=== PATIENT | female | born 2005 | race Caucasian/White ===

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

== ENCOUNTER 2024-08-22 13:49 | Outpatient (CLI) | payer OTHER, SELFPAY ==
--- NOTE | ~2024-08-22 | XR_ITS ---
XR lumbar spine 2-3V DATE: 08/22/2024 13:59 INDICATION: Low back pain for one month. No known injury. TECHNIQUE: AP, lateral, coned lateral lumbosacral views COMPARISON: None FINDINGS: Normal alignment of the lumbar spine. No fracture or bone destruction or spondylolisthesis. Included lower thoracic and lumbar pedicles are intact. Lumbosacral spaces are well preserved. The sacroiliac joints appear normal. IMPRESSION: Negative Reviewed, dictated and finalized at location A. IMPRESSION: Negative
== END 2024-08-22 13:50 | disposition home or self-care (01) ==
PROVIDERS: PCP Nurse Practitioner Family; Visit Provider Nurse Practitioner Family
DX: M54.50 Low back pain, unspecified (principal); G89.29 Other chronic pain
CPT/HCPCS: 72100

== ENCOUNTER 2025-01-13 15:33 | Outpatient (CLI) | payer OTHER, SELFPAY ==
--- NOTE | ~2025-01-13 | XR_ITS ---
EXAMINATION: XR scoliosis survey, XR lumbar spine min 4V DATE: 01/13/2025 15:57 INDICATION: Other intervertebral disc displacement. TECHNIQUE: 1. Standing AP and lateral views of the entire spine were each obtained on 3 overlapping cranial to c audal images. 2. Standing AP, coned-down lumbosacral and 3 lateral views in neutral, flexion and extension of the l umbar spine were obtained. COMPARISON: None. FINDINGS: Normal complement of 7 nonrib-bearing cervical, 12 paired rib bearing thoracic and 5 nonrib-bearing l umbar segments. Sagittal alignment is normal. 16 degree thoracic dextroscoliosis measured between T6 and L2 with 12 degrees levoscoliosis of the more cephalad thoracic spine from T1 through T6 and a deg ree lumbar levocurvature between L2 and L5. No pelvic tilt and the plumbline of epicenter of C7 lies directly over the epicenter of S1. Vertebral body and disc heights are normal throughout. Visualized portion of lungs are clear with no pleural effusion or pneumothorax. Heart size normal. Lead shieldin g over the breasts. Sagittal alignment of the lumbar spine is normal with normal motion on flexion and extension. Bilater al hip and sacroiliac joint spaces are normal. IMPRESSION: 1. Mild mid to lower thoracic dextro scoliosis with mild compensatory upper thoracic and lumbar levoc urvature. 2. Normal alignment of the lumbar spine with normal motion on flexion and extension. Reviewed, dictated and finalized at location B. IMPRESSION: 1. Mild mid to lower thoracic dextro scoliosis with mild compensatory upper tho racic and lumbar levocurvature. 2. Normal alignment of the lumbar spine with normal motion on flexion and exten delicia.
[2025-01-13 16:42] LABS: Rheumatoid Factor < 12.0 IU/ML (<12)
[2025-01-13 16:43] LABS: CRP < 0.5 mg/dL (<1.0)
[2025-01-13 16:50] LABS: Erythrocyte Sedimentation Rate 8 mm/hr (0-20)
--- OUTSIDE RECORDS SUMMARY | 2025-01-13 18:09 | XMS_ITS | Clinical Summary ---
Author Organization [facility] Address [address] [place] [address] Phone Care Team Providers Care Installation Manager Name Role Phone Shireen Rivera Erin DIRECTOR AND PROFESSOR Unavailable [phone] Rita Lin MD Primary Care Provider Allergies No known active allergies Medications acetaminophen-ca ffeine (Excedrin Tension Headache) 500-65 MG Tablet Take 2 Tabs by mouth every 4 hours as needed. Active amitriptyline (ELAVIL) 25 MG TabletIndication s:Other migraine without status migrainosus, intractable Take 1 Tablet by mouth nightly. 90 Tablet 3 4 Active SUMAtriptan (IMITREX) 25 MG TabletIndication s:Other migraine without status migrainosus, intractable Take 2 Tablets by mouth once as needed for Migraine for up to 5 doses. Use as directed. May repeat dose in 2 hours if headache recurs. 9 Tablet 3 4 Active Active Problems Problem Noted Date Diagnosed Date Migraine 07/01/2024 Overview (07/01/2024): Refilled amitriptyline 25 mg, sumatriptan p.r.n. Generalized anxiety disorder 07/14/2020 Moderate episode of recurrent major depressive d isorder 12/17/2018 Constipation 03/12/2008 Depression Anxiety Immunizations Immunization Administration Dates Next Due DTAP VACCINE 04/07/2005, 5,2004,05/25 H1N1 INJECTION 10/01/2009,08/14/2009 Hepatitis A Vaccine, Pediatric/adolescent, 2 Dose Schedule 07/14/2020 Hepatitis B Vaccine 2004, 4,2004,03/10 Human Papillomavirus (HPV) 9 -valent Vaccine 07/14/2020 Inactivated Polio Vaccine 2004,2004, 2004 Influenza Vaccine 11/11/2013 Influenza Vaccine Quadrivalent Nasal 09/28/2014 Influenza Vaccine greater than 3 yrs 08/19/2019, 08/15/2017 Influenza Vaccine, Quadrivalent, PF 09/28/2021,0 06/29/2020 Influenza, Seasonal, Injecta ble, Undefined 08/19/2019,08/15/2017 MMR Vaccine 04/07/2005 Meningococcal MCV4O 06/22/2020 Novel [id number], Injectable 10/01/2009,1 PUR DTAP/IPV Combined Vaccine 03/19/2009 PUR FLU PRES FREE AGE 3+ FULL IM 11/11/2013,07/23 PUR FLU QUADRIVALENT INTRANASAL 09/28/2014 PUR HEP A PED ADOLES 2 DOSE IM 05/20/2015 PUR Human Papillomavirus 9-v alent Vaccine 05/20/2015 PUR MENINGOCOCCAL IM 04/19/2015 PUR MMR SQ 03/19/2009 PUR TDAP 7+ YRS IM 04/19/2015 Pneumococcal Vaccine Peds 04/07/2005,,2004,05/25 Pur Varicella Virus SQ 03/19/2009 TDAP Vaccine 06/22/2020 Varicella Vaccine Live 04/07/2005 Family History Medical History Relation Name Comments Autism Brother Autism Father Alcohol Abuse Mother Bipolar Disorder Mother Drug Abuse Mother Self-Injury Mother Suicide Attempts Mother Relation Name Status Comments Brother Alive Father Alive Mother Alive Social History Tobacco Use Types Packs/Day Years Used Date Smoking Tobacco: Never Passive Smoke Exposure: Yes Smokeless Tobacco: Never Tobacco Cessation:Counseling Given: Not Answered Comments:Mom smokes- over there once a week Alcohol Use Standard Drinks/Week Comments Never 0 (1 standard drink = 0.6 oz pur e alcohol) [facility] Utilities Answer Date Recorded In the past 12 months has e [employer], oil, or water company threatened to shut off services in your home? Patient declined 07/01/2024 Social Connection and Isolation Panel [NHANES] A nswer Date Recorded In a typical week, how many times do you talk on the phone with family, friends, or neighbors? Once a week 07/01/2024 How often do you get togethe r with friends or relatives? Once a week 07/01/2024 How often do you attend restorationist or restorationism serv ices? Patient declined 07/01/2024 Do you belong to any clubs o r organizations such as restorationist groups, unions, fraternal or athletic groups, or school groups? Patient declined 07/01/2024 How often do you attend meet ings of the clubs or organizations you belong to? Patient declined 07/01/2024 Are you , , di vorced, , never , or living with a partner? Never 07/01/2024 AUDIT-C Answer Date Recorded Q1: How often do you have a drink containing alcohol? Never 07/01/2024 Q2: How many drinks containi ng alcohol do you have on a typical day when you are drinking? Patient does not drink Q3: How often do you have si x or more drinks on one occasion? Never 07/01/2024 Overall Financial Resource Strain (CARDIA) Answe r Date Recorded How hard is it for you to pa y for the very basics like food, housing, medical care, and heating? Not very hard 07/01/2024 PHQ-2 Answer Date Recorded Total Score - Questions 1-9 20 11/22 [facility] - Occupational Stress Questionnaire Answer Date Recorded Do you feel stress - tense, restless, nervous, or anxious, or unable to sleep at night because your mind is troubled all the time - these days? Very much 07/01/2024 Exercise Vital Sign Answer Date Recorde d On average, how many days pe r week do you engage in moderate to strenuous exercise (like a brisk walk)? 6 days 07/01/2024 On average, how many minutes do you engage in exercise at this level? 30 min 07/01/2024 Hunger Vital Sign Answer Date Recorded Within the past 12 months, y ou worried that your food would run out before you got the money to buy more. Patient declined Within the past 12 months, t he food you bought just didn't last and you didn't have money to get more. Patient declined 07/2024 PRAPARE - Transportation Answer Date Re corded In the past 12 months, has l ack of transportation kept you from medical appointments or from getting medications? No 06/22 In the past 12 months, has l ack of transportation kept you from meetings, work, or from getting things needed for daily living? No 07/01/2024 Housing Stability Vital Sign Answer Art e Recorded In the last 12 months, was t here a time when you were not able to pay the mortgage or rent on time? Patient declined 07/01/20 24 Number of Times Moved in the Last Year Not on fi le 07/01/2024 At any time in the past 12 m [facility], were you homeless or living in a fpc (including now)? 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 Gender Identity Not on file Sexual Orientation Not on file Last Filed Vital Signs Vital Sign Reading Time Taken Comments Blood Pressure 110/80 07/01/2024 8:02 AM CDT Pulse 73 07/01/2024 8:02 AM CDT Temperature 36.5 C (97.7 F) 07/01/2024 8:02 AM CDT Respiratory Rate 16 02/03/2021 1:55 PM CDT Oxygen Saturation 98% 07/01/2024 8:02 AM CDT Inhaled Oxygen Concentration - - Weight 60.4 kg (133 lb 1.6 oz) 07/01/2024 8:02 A M CDT Height 172.7 cm (5' 8 ) 07/01/2024 8:02 AM CDT Body Mass Index 20.24 07/01/2024 8:02 AM CDT Plan of Treatment Health Maintenance Due Date Last Done Comments Hepatitis C Virus (HCV) Screening 2004 Meningococcal B Immunization (1 of 2 - Standard) 2020 Influenza Immunization (#1) 2024 12/0 05/2021, 06/29/2020, 08/19/2019, Additional history exists SARS-COV-2 Immunization (3 - 2023- season) 2024 03/03/2021, 02/10/2021 DTaP/Tdap/Td Immunization (8 - Td or Tdap) 06/22/2030 06/22/2020, 04/19/2015, 03/19/2009, Additional history exists Respiratory Syncytial Virus (RSV) Immunization (Adult) (1 - 1-dose 75+ series) 2079 Hepatitis B Immunization Completed 005, 2004, 2004, Additional history exists Pneumococcal Immunization Combined Aged Out 04/07/2005, 2004, 2004, Additional history exists No longer eligible based on patient's age to complete this topic Measles Mumps Rubella (MMR) Immunization Discontinued 03/19/2009, 04/07/2005 Polio (IPV) Immunization Discontinued 009, 2004, 2004, Additional history exists Varicella Immunization Discontinued 03/19/2009, 2004 Meningococcal Immunization (ACWY) Completed 06/22/2020, 04/19/2015 Hepatitis A Immunization Discontinued 07/14/2020, 04/23 Human Papillomavirus (HPV) Immunization Completed 07/14/2020, 05/20/2015 Rotavirus Immunization Aged Out No lo nger eligible based on patient's age to complete [place] [address] [facility] [place] [address] [facility] [place] [address] Care Teams Installation Manager Relationship Specialty Start Date End Date Rita Lin MD [place], [place] [id number] PCP - General Family Medicine 07/01/24 Shireen Rivera LCSW [place], [place] [id number] Behavioral Health Provider Licensed Clinical Prehemmer 07/07/20
--- OUTSIDE RECORDS SUMMARY | 2025-01-13 18:09 | XMS_ITS | Continuity of Care Document ---
Author Organization [facility] Address [address] [place] [address] Phone Care Team Providers Care Zipper Sewing Machine Operator Name Role Phone Kelly Garcia PTA Unavailable Unavailable Procedures Procedure Date Neuromuscular Re-Ed Therapeutic Exercise Therapeutic Activities Neuromuscular Re-Ed Therapeutic Exercise Manual Therapy Therapeutic Activities Neuromuscular Re-Ed Therapeutic Exercise Manual Therapy Therapeutic Activities Neuromuscular Re-Ed Therapeutic Activities Neuromuscular Re-Ed Therapeutic Exercise Manual Therapy Therapeutic Activities Neuromuscular Re-Ed Therapeutic Exercise Therapeutic Activities Neuromuscular Re-Ed Therapeutic Exercise PT Re-Evaluation Therapeutic Activities Neuromuscular Re-Ed Advance Directives Directive Yes / No Effective Date File Name No Information Encounters Encounter Description Practice Location Reason(s) For Visit Diagnoses Date Provider Providers Copied on [facility], [address], [place], [place], [id number], tel:[phone] [place] No Information Radha Mendoza. . Referring Provider: Kathryn Floyd, [address] [place], [address]. tel:[phone] [facility], [address] [facility], [place], [place], [id number], [place] tel:[phone] [place] No Information Jossie Whitman. . Referring Provider: Kathryn Floyd, [address] [place], [address]. tel:[phone] [facility], [address] [facility] [place], [place], [id number], [place] tel:[phone] [place] No Information Radha Mendoza. . Referring Provider: Kathryn Floyd, [address] [place], [address]. tel:[phone] [facility], [address], [id number], [place] tel:[phone] [place] No Information Rubén Stroud. . Referring Provider: Kathryn Floyd, [address] [place], [address]. tel:[phone] [facility], [address], [id number], [place] tel:[phone] [place] No Information Radha Mendoza. . Referring Provider: Kathryn Floyd, [address] [place], [address]. tel:[phone] [facility], [address], [id number], [place] tel:[phone] [place] No Information Radha Mendoza. . Referring Provider: Kathryn Floyd, [address] [place], [address]. tel:[phone] [facility], [address] [place], [id number], tel:[phone] [place] No Information Marlo Samson. . Referring Provider: Kathryn Floyd, [address] [place], [address]. tel:[phone] [facility], [address], [place], [place], [id number], tel:[phone] [place] No Information Rubén Stroud. . Referring Provider: Kathryn Floyd, [address] [place], [address]. tel:[phone] Family History Family Member Type Diagnosis Age At Onset No Information Payers Payer name Insurance type Covered constitution party ID Authordenise higginbotham(s) U[employer] CI [id number] Social History Type Description Quantity Date Captured Comments Sex Female Smoking Status No Information Chief Complaint And Reason For Visit No Information Reason For Referral Reason For Referral No Information History Of Present Illness Encounter Date Complaint History Of Prese nt Illness No Information Functional Status Date Functional Assessmen t No Information Instructions Date Instruction Additional Infor mation No Information Assessments Type Assessment Date No Information Patient Care Teams Name Effective Dates (start - stop) Status Members No Information
--- OUTSIDE RECORDS SUMMARY | 2025-01-13 18:09 | XMS_ITS | Continuity of Care Document ---
Author Organization [employer] [place] Address [address] [place] [address] Phone Care Team Providers Care Eyeglass Cutter Name Role Phone Patrick Sharma Unavailable Unavailable Procedures Procedure Date Therapeutic Activities Neuromuscular Re-Ed Therapeutic Exercise Hot or Cold Pack Therapeutic Activities Neuromuscular Re-Ed Therapeutic Exercise Hot or Cold Pack Therapeutic Activities Neuromuscular Re-Ed Therapeutic Exercise Hot or Cold Pack Therapeutic Activities Neuromuscular Re-Ed Therapeutic Exercise Hot or Cold Pack Therapeutic Activities Neuromuscular Re-Ed Manual Therapy Hot or Cold Pack Therapeutic Activities Neuromuscular Re-Ed Hot or Cold Pack Therapeutic Activities Neuromuscular Re-Ed Hot or Cold Pack Therapeutic Exercise Therapeutic Activities Neuromuscular Re-Ed Hot or Cold Pack PT Evaluation Moderate Complexity Neuromuscular Re-Ed Therapeutic Exercise Therapeutic Activities Neuromuscular Re-Ed Therapeutic Exercise Therapeutic Activities Neuromuscular Re-Ed Therapeutic Exercise Therapeutic Activities Neuromuscular Re-Ed Therapeutic Exercise Therapeutic Activities Neuromuscular Re-Ed Therapeutic Exercise Therapeutic Activities Neuromuscular Re-Ed Therapeutic Exercise PT Evaluation Moderate Complexity Therapeutic Activities Neuromuscular Re-Ed Advance Directives Directive Yes / No Effective Date File Name No Information Encounters Encounter Description Practice Location Reason(s) For Visit Diagnoses Date Provider Providers Copied on Encounter [facility] [address], [id number], tel:[phone] [place] No Information Mudollyl Patrick. [id number] [place] [address], [facility], . tel:[phone] Referring Provider: Kathryn Floyd, [address] [place], [address]. tel:[phone] [facility] [address] [place] [address], [id number], tel:[phone] [place] No Information Raúll Patrick. [address], [facility], . tel:[phone] Referring Provider: Kathryn Floyd, [address] [place], [address]. tel:[phone] [facility] [address], [id number], tel:[phone] [place] No Information Muehl Patrick. [address] [place] [address], [facility] [address], [facility], . tel:[phone] Referring Provider: Kathryn Floyd, [address] [place], [address]. tel:[phone] [facility] [address], [id number], tel:[phone] [place] No Information 5 Muehl Patrick. [address] [place] [address], [address], [place], [facility], [place]. tel:[phone] Referring Provider: Kathryn Floyd, [address] [place], [address]. tel:[phone] [facility] [address], [id number], tel:[phone] [place] No Information 5 Muehl Patrick. [address] [place] [address], [facility] [address] [place], [facility], [place]. tel:[phone] Referring Provider: Kathryn Floyd, [address] [place], [address]. tel:[phone] [facility] [address], [id number], tel:[phone] [place] No Information 5 Muehl Patrick. [address] [place] [address], [facility] [address], [address], [place]. tel:[phone] Referring Provider: Kathryn Floyd, [address] [place], [address]. tel:[phone] [facility] [address], [id number], tel:[phone] [place] No Information 5 Muehl Patrick. [address] [place] [address], [facility] [address], [address], [place]. tel:[phone] Referring Provider: Kathryn Floyd, [address] [place], [address]. tel:[phone] [facility] [address], [id number], tel:[phone] [place] No Information 5 Raúll Patrick. [address] [facility], [facility] [address] [place], [facility], . tel:[phone] Referring Provider: Kathryn Floyd, [address] [place], [address]. tel:[phone] [facility] [address], [id number], tel:[phone] [place] No Information 5 Raúll Patrick. [address] [facility], [facility] [address], [place], [facility], . tel:[phone] Referring Provider: Kathryn Floyd, [address] [place], [address]. tel:[phone] [facility] [address], [id number], [place] tel:[phone] [place] No Information Sep-1 4 [place] [facility]. . Referring Provider: Kathryn Floyd, [address] [place], [address]. tel:[phone] [facility] [address], [id number], [place] tel:[phone] [place] No Information Dec-1 - 4 [place], [place], [place]. Referring Provider: Kathryn Floyd, [address] [place], [address]. tel:[phone] [facility], [id number], tel:[phone] [place] No Information Dec-0 6- 4 [place] [facility]. . Referring Provider: Kathryn Floyd, [address] [place], [address]. tel:[phone] [facility] [address], [id number], tel:[phone] [place] No Information Dec-0 4-202 4 [place] [facility]. . Referring Provider: Kathryn Floyd, [address] [place], [address]. tel:[phone] [facility] [address], [id number], tel:[phone] [place] No Information 2 2 4 [place] [facility]. . Referring Provider: Kathryn Floyd, [address] [place], [address]. tel:[phone] [facility] [address], [id number], tel:[phone] [place] No Information Aug-2 0- 4 [place], [place], . Referring Provider: Kathryn Floyd, [address] [place], [address]. tel:[phone] Family History Family Member Type Diagnosis Age At Onset No Information Payers Payer name Insurance type Covered alliance party ID Authornelliea neftaly(s) R CI [id number] Social History Type Description Quantity Date Captured Comments Sex Female Smoking Status No Information Chief Complaint And Reason For Visit No Information Reason For Referral Reason For Referral No Information Plan Of Treatment Date Type Action Status Referral Ordered: Referrals: Specialist. Evaluate and Treat (related to Adjustment disorder with depressed mood) ordered Referral Ordered: Depression: Depression management program timeframe: 1 Day. (related to Depression) ordered Referral Ordered: Clinical Psychology (related to Depression) ordered History Of Present Illness Encounter Date Complaint History Of Prese nt Illness No Information Functional Status Date Functional Assessmen t No Information Instructions Date Instruction Additional Infor mation No Information Assessments Type Assessment Date No Information Patient Care Teams Name Effective Dates (start - stop) Status Members No Information
== END 2025-01-13 15:34 | disposition home or self-care (01) ==
PROVIDERS: PCP Nurse Practitioner Family; Visit Provider Neurological Surgery
DX: M51.27 Other intervertebral disc displacement, lumbosacral region (principal); M54.50 Low back pain, unspecified
CPT/HCPCS: 36415; 72082; 72110; 85652; 86038; 86039; 86140; 86430